=== PATIENT | male | born 1990 | race Caucasian/White ===

== ENCOUNTER 2021-02-11 17:36 | Emergency (ER) | payer BC, OTHER ==
[~2021-02-11] VITALS: Ht 180 cm; Wt 103.0 kg
[2021-02-11] MEDS ORDERED: KETOROLAC 30 MG/ML VIAL IVP STA (17:44)
[2021-02-11] MEDS ORDERED: NS IV 1000 ML 1,000 ML IV STA (17:44)
--- NOTE | 2021-02-11 17:44 | ED Chest Pain ---
General Stated Complaint: BACK PAIN/CHEST PAIN History of Present Illness Date Seen by Provider: Feb 11, 2021 Time Seen by Provider: 17:39 Initial Comments 31-year-old male presents with by lateral upper chest pain, back pain. He reports started by an hour and a half ago. Gets worse with movement better with rest. He does report he had a sore throat a couple days ago some generalized malaise. No fever or chills. No cough. No shortness of breath. Does report he has been having some issues with high blood pressure and anxiety recently. Allergies and Home Medications Allergies Coded Allergies: No Known Drug Allergies (Unverified , 02/11/21) Patient Home Medication List Home Medication List Reviewed: Yes Review of Systems Review of Systems Constitutional: No chills, No fever EENTM: See HPI, Throat Pain Respiratory: Denies Cough, Denies Shortness of Air Cardiovascular: Chest Pain; Denies Lightheadedness Gastrointestinal: Denies Abdominal Pain, Denies Nausea, Denies Vomiting Genitourinary: No Symptoms Reported Musculoskeletal: see HPI Skin: no symptoms reported Psychiatric/Neurological: No Symptoms Reported Endocrine: No Symptoms Reported Physical Exam Vital Signs Vital Signs - First Documented Capillary Refill : Height, Weight, BMI Height: '" Weight: lbs. oz. kg; BMI Method: General Appearance: No Apparent Distress, WD/WN Respiratory: Lungs Clear, Normal Breath Sounds, Other (Mild tenderness anterior chest wall) Cardiovascular: Regular Rate, Rhythm, No Edema Gastrointestinal: Non Tender, Soft Neurologic/Psychiatric: Alert, Oriented x3, No Motor/Sensory Deficits, Normal Mood/Affect, title i director II-XII Norm as Tested Skin: Normal Color, Warm/Dry Progress/Results/Core Measures Results/Orders Lab Results Laboratory Tests Test 02/11/21 17:44 02/11/21 17:50 02/11/21 19:35 Range/Units White Blood Count 5.8 4.3-11.0 10^3/uL Red Blood Count 5.62 H 4.30-5.52 10^6/uL Hemoglobin 17.7 13.3-17.7 g/dL Hematocrit 51 40-54 % Mean Corpuscular Volume 90 80-99 fL Mean Corpuscular Hemoglobin 31 25-34 pg Mean Corpuscular Hemoglobin Concent 35 32-36 g/dL Red Cell Distribution Width 12.8 10.0-14.5 % Platelet Count 168 130-400 10^3/uL Mean Platelet Volume 8.8 L 9.0-12.2 fL Immature Granulocyte % (Auto) 0 % Neutrophils (%) (Auto) 72 42-75 % Lymphocytes (%) (Auto) 14 12-44 % Monocytes (%) (Auto) 13 H 0-12 % Eosinophils (%) (Auto) 0 0-10 % Basophils (%) (Auto) 0 0-10 % Neutrophils # (Auto) 4.2 1.8-7.8 X 10^3 Lymphocytes # (Auto) 0.8 L 1.0-4.0 X 10^3 Monocytes # (Auto) 0.8 0.0-1.0 X 10^3 Eosinophils # (Auto) 0.0 0.0-0.3 10^3/uL Basophils # (Auto) 0.0 0.0-0.1 10^3/uL Immature Granulocyte # (Auto) 0.2 H 0.0-0.1 10^3/uL Prothrombin Time 13.1 12.2-14.7 SEC INR Comment 1.0 0.8-1.4 Activated Partial Thromboplast Time 25 24-35 SEC Sodium Level 138 135-145 MMOL/L Potassium Level 3.5 L 3.6-5.0 MMOL/L Chloride Level 99 98-107 MMOL/L Carbon Dioxide Level 28 21-32 MMOL/L Anion Gap 11 5-14 MMOL/L Blood Urea Nitrogen 9 7-18 MG/DL Creatinine 1.16 0.60-1.30 MG/DL Estimat Glomerular Filtration Rate 73 BUN/Creatinine Ratio 8 Glucose Level 104 70-105 MG/DL Calcium Level 9.4 8.5-10.1 MG/DL Corrected Calcium 9.0 8.5-10.1 MG/DL Magnesium Level 1.7 1.6-2.4 MG/DL Total Bilirubin 1.1 H 0.1-1.0 MG/DL Aspartate Amino Transf (AST/SGOT) 38 H 5-34 U/L Alanine Aminotransferase (ALT/SGPT) 50 0-55 U/L Alkaline Phosphatase 83 40-136 U/L Myoglobin 31.3 10.0-92.0 NG/ML Troponin I < 0.30 < 0.30 <0.30 NG/ML Total Protein 7.6 6.4-8.2 GM/DL Albumin 4.5 3.2-4.5 GM/DL My Orders Orders - MACIEJ JAMES DO Cbc With Automated Diff (02/11/21 17:44) Magnesium (02/11/21 17:44) Chest 1 View Ap/Pa Only (02/11/21 17:44) Ekg Tracing (02/11/21 17:44) Comprehensive Metabolic Panel (02/11/21 17:44) Myoglobin Serum (02/11/21 17:44) Protime With Inr (02/11/21 17:44) Partial Thromboplastin Time (02/11/21 17:44) Monitor-Rhythm Ecg Trace Only (02/11/21 17:44) Lipid Panel (02/12/21 06:00) Aspirin Chewable Tablet (Baby Aspirin Ch (02/11/21 17:45) Ed Iv/Invasive Line Start (02/11/21 17:44) Troponin I Fs (02/11/21 17:44) Ns Iv 1000 Ml (Sodium Chloride 0.9%) (02/11/21 17:44) Ketorolac Injection (Toradol Injection) (02/11/21 17:44) Covid 19 Inhouse Test (02/11/21 17:44) Troponin I Fs (02/11/21 19:45) Medications Given in ED Current Medications Medications Dose Ordered Sig/Naida Route Start Time Stop Time Status Last Admin Dose Admin Aspirin 324 mg ONCE ONCE PO 02/11/21 17:45 02/11/21 17:48 DC 02/11/21 18:01 324 MG Vital Signs/I&O 02/11/21 02/11/21 17:38 17:38 Temp 36.2 Pulse 93 Resp 18 B/P (MAP) 142/91 (108) Pulse Ox 98 O2 Delivery Room Air Room Air Progress Progress Note : Progress Note Patient symptoms improved with treatment of the Toradol. Patient with 2 - troponins, negative EKG. I suspect symptoms are likely result of a muscle strain since it gets worse with movement better with rest. Patient stable and discharged home. Initial ECG Impression Date: Feb 11, 2021 Initial ECG Impression Time: 17:40 Initial ECG Rate: 92 Initial ECG Rhythm: Normal Sinus Initial ECG Intervals: Normal Initial ECG Impression: Nonspecific Changes Departure Impression Primary Impression: Chest wall pain Disposition: 01 HOME, SELF-CARE Condition: Stable Departure-Patient Inst. Referrals: NO,LOCAL PHYSICIAN (PCP/Family) Primary Care Physician Patient Instructions: Chest Pain That Is Not Caused by the Heart (DC), Muscle Strain Add. Discharge Instructions: Tylenol or ibuprofen as needed for pain Follow-up with your primary care provider if symptoms or not improving Return to the ER if you develop worsening chest pain, shortness of breath or any other concerning symptoms MACIEJ JAMES DO Feb 11, 2021 17:44
[2021-02-11] MEDS ORDERED: ASPIRIN 81 MG CHEW (CHILDREN'S ASA) PO ONE (17:45)
[2021-02-11 17:57] LABS: BASOPHILS % (AUTO) 0 % (0-10); EOSINOPHILS % (AUTO) 0 % (0-10); HEMATOCRIT 51 % (40-54); HEMOGLOBIN 17.7 g/dL (13.3-17.7); LYMPHOCYTES % (AUTO) 14 % (12-44); MEAN CORPUSCULAR HEMOGLOBIN 31 pg (25-34); MEAN CORPUSCULAR HGB CONC 35 g/dL (32-36); MEAN CORPUSCULAR VOLUME 90 fL (80-99); MEAN PLATELET VOLUME 8.8 fL (9.0-12.2); MONOCYTES % (AUTO) 13 % (0-12); NEUTROPHILS % (AUTO) 72 % (42-75); PLATELET COUNT 168 10^3/uL (130-400); WHITE BLOOD COUNT 5.8 10^3/uL (4.3-11.0)
[2021-02-11 17:58] LABS: LYMPHOCYTES # (AUTO) 0.8 X 10^3 (1.0-4.0); MONOCYTES # (AUTO) 0.8 X 10^3 (0.0-1.0); NEUTROPHILS # (AUTO) 4.2 X 10^3 (1.8-7.8)
--- NOTE | 2021-02-11 18:02 | Diagnostic Imaging Report ---
INDICATION: Chest pain. EXAMINATION: Single portable AP view of the chest was obtained. FINDINGS: Heart size and pulmonary vascularity are within normal limits, and the lungs are clear, bilaterally. IMPRESSION: Unremarkable chest. Dictated by: Dictated on workstation # [id number]
[2021-02-11 18:32] LABS: POTASSIUM 3.5 MMOL/L (3.6-5.0)
[2021-02-11 18:33] LABS: BILIRUBIN,TOTAL 1.1 MG/DL (0.1-1.0); CALCIUM 9.4 MG/DL (8.5-10.1); CREATININE SERUM 1.16 MG/DL (0.60-1.30); MAGNESIUM 1.7 MG/DL (1.6-2.4); TOTAL PROTEIN 7.6 GM/DL (6.4-8.2)
[2021-02-11 18:34] LABS: ALBUMIN 4.5 GM/DL (3.2-4.5)
[2021-02-11 18:40] LABS: PROTHROMBIN TIME PATIENT 13.1 SEC (12.2-14.7)
[2021-02-11 20:23] VITALS: BP 114/78
== END 2021-02-11 20:23 | disposition home or self-care (01) ==
LOC: ER FS 17:38
DX: R07.89 Other chest pain (principal); I10 Essential (primary) hypertension; F41.9 Anxiety disorder, unspecified; Z20.822 Contact with and (suspected) exposure to COVID-19
CPT/HCPCS: 36415; 71045; 80053; 83735; 83874; 84484; 85025; 85610; 85730; 87636; 93005; 93041

== ENCOUNTER 2021-12-23 19:49 | Emergency (ER) | payer BC, OTHER ==
[~2021-12-23] VITALS: Ht 177.8 cm; Wt 95.4 kg
[2021-12-23] MEDS ORDERED: LIDOCAINE 1% INJ 50 ML (XYLOCAINE) VIAL IJ STA (20:03)
--- NOTE | 2021-12-23 20:07 | ED Upper Extremity ---
General Chief Complaint: Laceration Stated Complaint: R MIDDLE AND RING FINGER LACS Source: patient History of Present Illness Date Seen by Provider: Dec 23, 2021 Time Seen by Provider: 19:51 Initial Comments 31-year-old male presenting with laceration to his right middle finger and ring finger. He was trying to carry a dryer by himself and the lid came down and cut into his fingers. He states that he is unsure of his last tetanus shot. He denies any allergies or medications. He has normal movement and sensation. Bleeding controlled blood pressure. Onset: just prior to arrival Severity: moderate Pain/Injury Location: right 3rd finger, right 4th finger Method of Injury: incised Modifying Factors: Worse With Movement Allergies and Home Medications Allergies Coded Allergies: No Known Drug Allergies (Unverified , 02/11/21) Patient Home Medication List Home Medication List Reviewed: Yes Amoxicillin/Potassium Clav (Amox Tr-K Clv 875-125 mg Tab) 875 Mg-125 Mg Tablet, 1 EACH PO BID Prescribed by: XAVIER MCKEON on 12/23/212143 Ibuprofen (Ibuprofen) 800 Mg Tablet, 800 MG PO Q8H PRN for PAIN Prescribed by: XAVIER MCKEON on 12/23/212143 Review of Systems Constitutional: No chills, No fever EENTM: no symptoms reported Respiratory: no symptoms reported Cardiovascular: no symptoms reported Gastrointestinal: no symptoms reported Genitourinary: no symptoms reported Musculoskeletal: see HPI Skin: see HPI Psychiatric/Neurological: No Symptoms Reported Past Kajzwmo-Iiqyin-Kgcigh Hx Patient Social History Tobacco Use?: Yes Tobacco type used: Cigarettes Alcohol Use?: Yes Alcohol type: Beer Alcohol Frequency: Once in a while Physical Exam Vital Signs Vital Signs - First Documented 12/23/21 19:50 Temp 37.0 Pulse 100 Resp 18 B/P (MAP) 140/103 (115) Pulse Ox 98 O2 Delivery Room Air Capillary Refill : Height, Weight, BMI Height: '" Weight: lbs. oz. 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 He was verbally consented for cleaning the wound and closing the skin with stitches. Using 1% plain lidocaine a digital ring block was applied to the right middle finger using 6 mL of 1% plain lidocaine. Then a ring turnicot was applied to help with hemostasis and pain control. Then using chlorhexidine scrub soap and sterile water the wound was scrubbed and cleaned further. No foreign bodies were seen. A total of 8 simple interrupted stitches were placed to help approximate the wound edges. Patient tolerated procedure well without any immediate complication. The turnicot was cut off at the end of the procedure on his middle finger. Counseled on follow-up and return precautions. Wound Location: Upper Extremities (Right ring finger) Wound Length (cm): 1.8 Wound's Depth, Shape: linear, sub Q Wound Explored: clean Anesthesia: 1% Lidocaine Volume Anesthetic (ccs): 5 Suture: Ethlion Suture Size: 4-0 Number of Sutures: 5 Sterile Dressing Applied?: Yes Progress After obtaining verbal consent the right ring finger was anesthetized using 1% plain lidocaine and infiltrating 5 mL of medicine in a ring block fashion. Then using chlorhexidine scrub soap and sterile water the wound was scrubbed and cleaned. Using 4-0 Ethilon a total of 5 simple interrupted stitches were placed to help approximate the wound edges. Patient tolerated procedure well without any immediate complication. Counseled on follow-up and return precautions. Progress/Results/Core Measures Results/Orders My Orders Orders - XAVIER MCKEON MD Dipht,Ralph(Acell),Tet Adult (Boostrix (12/23/21 20:15) Lidocaine 1% Inj 50 Ml (Xylocaine 1% Inj (12/23/21 20:03) Suture Set At Bedside (12/23/21 20:03) Finger(S) (12/23/21 20:04) Amoxicillin/Clavulanate Tablet (Augmenti (12/23/21 21:38) Rx-Hydrocodone/Apap 5-325 Mg (Rx-Vicodin (12/23/21 21:45) Ed Ortho/Other Supplies Order (12/23/21 21:38) Orthopedic Equiment (12/23/21 21:38) Rx-Hydrocodone/Apap 5-325 Mg (Rx-Vicodin (12/23/21 21:59) Amoxicillin/Clavulanate Tablet (Augmenti (12/23/21 21:59) Medications Given in ED Current Medications Medications Dose Ordered Sig/Naida Route Start Time Stop Time Status Last Admin Dose Admin Acetaminophen/ Hydrocodone Bitart 1 ea Q6H PRN PO 12/23/21 21:45 12/23/21 22:03 DC 12/23/21 22:02 1 EA Diphtheria/ Tetanus/Acell Pertussis 0.5 ml ONCE ONCE IM 12/23/21 20:15 12/23/21 20:16 DC 12/23/21 20:31 0.5 ML Vital Signs/I&O 12/23/21 12/23/21 12/23/21 19:50 20:30 22:03 Temp 37.0 37.83512 37.0 Pulse 100 86 Resp 18 18 B/P (MAP) 140/103 (115) 129/83 Pulse Ox 98 97 O2 Delivery Room Air Room Air Progress Progress Note #1: Progress Note Wound was cleaned with chlorhexidine scrub soap and sterile water. No foreign bodies visualized. Will obtain x-rays to make sure there is nothing in the tissue and no bony injury. Update tetanus and plan on closing wounds with stitches Progress Note #2: Progress Note X-rays did demonstrate a small avulsion fracture of the right middle finger on the distal phalanx. Patient tolerated cleaning of closing of the lacerations. Counseled on follow-up and return precautions. Since he did have a fracture and laceration will treat with antibiotics to try and help prevent infection and/or osteomyelitis. Diagnostic Imaging Diagonstic Imaging: Xray Plain Films/CT/US/NM/MRI: hand Comments [facility] [place], [place] NAME: BARBARA LEMOS [facility] REC#: [id number] PT STATUS: DEP ER : 1990 PHYSICIAN: XAVIER MCKEON MD ADMIT DATE: 12/23/21/ER FS Signed Date of Exam:12/23/21 FINGER(S) INDICATION: Pain, laceration. COMPARISON: None available. TECHNIQUE: Three radiographs centered upon the right hand 3rd digit dated December 23, 2021. FINDINGS: Minimally distracted fracture involving the lateral aspect of the distal tuft of the 3rd digit distal phalanx is identified. This is associated with overlying soft tissue swelling and bandage. No additional acute fracture or dislocation. No suspicious radiopaque foreign body. IMPRESSION: Suspected minimally distracted fracture involving the distal and lateral aspect of the tuft of the 3rd digit distal phalanx with associated overlying soft tissue swelling and bandage. Dictated by: Dictated on workstation # [id number] Dict: 12/23/212023 Trans: 12/23/212247 [facility] [id number] Interpreted by: MAGGY BRITO MD Electronically signed by: MAGGY BRITO MD 12/23/212247 Reviewed: Reviewed by Nj Departure Impression Primary Impression: Laceration of right middle finger w/o foreign body w/o damage to nail Qualified Codes: S61.212A - Laceration without foreign body of right middle finger without damage to nail, initial encounter Additional Impressions: Open avulsion fracture of distal phalanx of finger Qualified Codes: S62.639B - Displaced fracture of distal phalanx of unspecified finger, initial encounter for open fracture Laceration of right ring finger w/o foreign body w/o damage to nail Qualified Codes: S61.214A - Laceration without foreign body of right ring finger without damage to nail, initial encounter Disposition: 01 HOME, SELF-CARE Condition: Stable Departure-Patient Inst. Decision time for Depature: 21:41 Referrals: RANJEET REDDING,LOCAL PHYSICIAN (PCP) Primary Care Physician LUISA KUHN MD Patient Instructions: Finger Fracture ED, Laceration Repair With Stitches ED, Wound Care ED Add. Discharge Instructions: Leave the dressing from tonight on for the first 24 hours. After that you may remove it and wash your hands with soap and water. Do not soak your hand. After you remove the dressing use the finger splint to help keep your middle finger flexed or bent down. Wear this for the next 2 weeks at least to help it heal and follow-up with orthopedics to see when you could remove the splint. Keep the wounds clean and covered with a dressing especially when at work or they might get dirty. Return in 2 weeks to have the stitches removed or be seen sooner if having concerns for infection such as redness streaking up your fingers and hand, pus draining from the wounds, fever over 101 Fahrenheit All discharge instructions reviewed with patient and/or family. Voiced understanding. Scripts Ibuprofen (Ibuprofen) 800 Mg Tablet 800 MG PO Q8H PRN for PAIN for 10 Days, #30 TAB 0 Refills Prov: XAVIER MCKEON MD 12/23/21 Amoxicillin/Potassium Clav (Amox Tr-K Clv 875-125 mg Tab) 875 Mg-125 Mg Tablet 1 EACH PO BID for finger laceration with fractur for 7 Days, #14 TAB 0 Refills Prov: XAVIER MCKEON MD 12/23/21 Work/School Note: Work Release Form Date Seen in the Emergency Department: Dec 23, 2021 Return to Work: Dec 24, 2021 Restrictions: Need Release from Doctor Other Restrictions Listed Below: Keep dressing clean and dry. Wear finger splint until cleared Restrictions: Limit use of right hand until cleared by orthopedics XAVIER MCKEON MD Dec 23, 2021 20:07
[2021-12-23] MEDS ORDERED: TETANUS,DIPTH,PERTUSS P/F (BOOSTRIX) 0.5 ML VIAL IM ONE (20:15)
--- NOTE | 2021-12-23 20:32 | Diagnostic Imaging Report ---
INDICATION: Pain, laceration. COMPARISON: None available. TECHNIQUE: Three radiographs centered upon the right hand 3rd digit dated December 23, 2021. FINDINGS: Minimally distracted fracture involving the lateral aspect of the distal tuft of the 3rd digit distal phalanx is identified. This is associated with overlying soft tissue swelling and bandage. No additional acute fracture or dislocation. No suspicious radiopaque foreign body. IMPRESSION: Suspected minimally distracted fracture involving the distal and lateral aspect of the tuft of the 3rd digit distal phalanx with associated overlying soft tissue swelling and bandage. Dictated by: Dictated on workstation # [id number]
[2021-12-23] MEDS ORDERED: AUGMENTIN 875 MG TAB (AMOXICILLIN/CLAVULANATE) PO STA (21:38)
[2021-12-23] MEDS ORDERED: AMOX1TAB12 PO (21:44)
[2021-12-23] MEDS ORDERED: IBUP-1780 PO (21:44)
[2021-12-23] MEDS ORDERED: AUGMENTIN 875 MG TAB (AMOXICILLIN/CLAVULANATE) ONE (21:59)
[2021-12-23 22:03] VITALS: BP 129/83
== END 2021-12-23 22:03 | disposition home or self-care (01) ==
LOC: EDUNIT# 19:49 → ER FS 19:50
DX: S62.632B Displaced fracture of distal phalanx of right middle finger, initial encounter for open fracture (principal); S61.214A Laceration without foreign body of right ring finger without damage to nail, initial encounter; F17.210 Nicotine dependence, cigarettes, uncomplicated; Z23 Encounter for immunization; Z28.310 Unvaccinated for COVID-19; W45.8XXA Other foreign body or object entering through skin, initial encounter
CPT/HCPCS: 12002; 29130; 73140; 90715